=== PATIENT | female | born 1995 ===

== ENCOUNTER 2017-11-07 11:52 | Emergency (ER) | payer OTHER ==
[~2017-11-07] VITALS: Ht 157.5 cm; Wt 70.8 kg
[2017-11-07] MEDS ORDERED: TUSSI PRES-B L120 M1 PO (14:21)
== END 2017-11-07 14:23 | disposition home or self-care (01) ==
LOC: ER 11:52
DX: B34.9 Viral infection, unspecified (principal)

== ENCOUNTER 2018-02-15 10:44 | Emergency (ER) | payer OTHER ==
[~2018-02-15] VITALS: Ht 157.5 cm; Wt 72.6 kg
[~2018-02-15 10:44] MED LIST: TUSSI PRES-B L120 M1 PO
== END 2018-02-15 17:59 | disposition home or self-care (01) ==
LOC: ER 10:44
DX: M94.0 Chondrocostal junction syndrome [Tietze] (principal)

== ENCOUNTER → 2018-09-14 | Emergency (ER) | payer OTHER ==
[~2018-09-14] VITALS: Ht 157.5 cm; Wt 72.6 kg
== END | disposition home or self-care (01) ==
LOC: ER 20:48
DX: J06.9 Acute upper respiratory infection, unspecified (principal)